=== PATIENT | male | born 1990 | race Caucasian/White ===

== ENCOUNTER → 2023-10-02 10:00 | Outpatient (BNV) | payer OTHER, SELFPAY | PROVIDERS: Visit Provider Psychiatry & Neurology Psychiatry | DX: F33.1 Major depressive disorder, recurrent, moderate (principal); F90.2 Attention-deficit hyperactivity disorder, combined type; F63.89 Other impulse disorders; F12.980 Cannabis use, unspecified with anxiety disorder | CPT/HCPCS: 90792; 99213; 99499 ==

== ENCOUNTER 2023-10-05 08:42 | Outpatient (REF) | payer OTHER, SELFPAY ==
--- NOTE | 2023-10-05 12:30 | ECG_ITS ---
Test Reason : F39 Blood Pressure : / mmHG Vent. Rate : 054 BPM Atrial Rate : 054 BPM P-R Int : 142 ms QRS Dur : 088 ms QT Int : 440 ms P-R-T Axes : -05 004 013 degrees QTc Int : 417 ms Sinus bradycardia with sinus arrhythmia Otherwise normal ECG No previous ECGs available Referred By: Alice Araujo Electronically Signed By:JA POSADA
[2023-10-05 13:07] LABS: MANUAL DIFF FLAG NO
[2023-10-05 13:12] LABS: Basophils Percent Auto 0.3 % (0-2); Eosinophils Absolute Auto 0.2 X10*3/uL (0.0-0.4); Eosinophils Percent Auto 3.9 % (0-4); Hematocrit 43.7 % (42.0-52.0); Hemoglobin 14.7 g/dl (14.0-18.0); Imm Gran Abs Auto 0.02 X10*3/uL (0.00-0.03); Imm Gran Pct Auto 0.3 % (0.0-0.4); Lymphocytes Absolute Auto 1.9 X10*3/uL (1.2-4.9); Lymphocytes Percent Auto 32.4 % (20-40); Mean Corpuscular HGB Conc 33.6 g/dl (31.0-36.0); Mean Corpuscular Hemoglobin 29.9 pg (27.0-33.0); Mean Corpuscular Volume 88.8 fL (80.0-98.0); Mean Platelet Volume 9.1 fL (9.4-12.4); Monocytes Absolute Auto 0.4 X10*3/uL (0.1-1.2); Monocytes Percent Auto 6.5 % (2-11); Neutrophils Absolute Auto 3.3 x10*3/uL (2.0-8.3); Neutrophils Percent Auto 56.6 % (45-73); Platelet Count 289 X10*3/uL (160-400); Red Blood Count 4.92 X10*6/uL (4.60-5.80); White Blood Count 5.9 X10*3/uL (4.8-10.8)
[2023-10-05 13:24] LABS: Estimated Average Glucose 100 mg/dL; Hemoglobin A1c % 5.1 % (<6.0)
[2023-10-05 13:54] LABS: Erythrocyte Sedimentation Rate 4 MM/HR (0-15)
[2023-10-05 14:26] LABS: Cholesterol 154 mg/dL (<200); HDL Cholesterol 40 mg/dL (>40); LDL Cholesterol Calculated 92 mg/dL (<100); Triglycerides 110 mg/dL (<150)
[2023-10-05 14:32] LABS: Alanine Aminotransferase 23 U/L (0-40); Albumin Level 4.7 g/dL (3.5-5.0); Alkaline Phosphatase 77 U/L (39-117); Anion Gap 13 (12-20); Aspartate Amino Transferase 16 U/L (5-37); Bilirubin Total 0.4 mg/dL (0.0-1.0); Blood Urea Nitrogen 10 mg/dL (9-16); C Reactive Protein < 0.10 mg/dL (< or = 0.50); Calcium 9.5 mg/dL (8.4-10.2); Carbon Dioxide 27 mmol/L (22-29); Chloride 104 mmol/L (96-108); Estimated Glomerular Filt Rate > 60; Glucose Fasting 91 mg/dL (60-99); Iron 76 mcg/dL (45-160); Percent Iron Saturation 27 % (15-50); Phosphorus 2.7 mg/dL (2.7-4.5); Sodium 140 mmol/L (135-145); Total Iron Binding Capacity 282 mcg/dL (228-428); Total Protein 7.6 g/dL (6.5-8.0); Unsaturated Iron Binding 206 ug/dL
[2023-10-05 14:50] LABS: Ferritin 174 ng/mL (20-250); Free T4 (Free Thyroxine) 0.91 ng/dL (0.71-1.85); Thyroid Stimulating Hormone 1.68 uIU/mL (0.32-4.0); Vitamin D 25-OH Total 32.3 ng/mL (>30)
[2023-10-05 15:03] LABS: Folate 5.5 ng/mL (> or = 4.0); Vitamin B12 223 pg/mL (200-900)
[2023-10-06 08:48] LABS: Syphilis Screen Nonreactive (Nonreactive)
[2023-10-06 08:51] LABS: HBS Num1 2.64 mIU/mL (0-7.99); HBc Num1 0.08 S/CO (0.00-0.79); HBsAGNum1 0.25 S/CO (0.00-0.99); HIV AB/AG Nonreactive (Nonreactive); HIV Num 1 0.05 S/CO (0.00-0.99); Hepatitis B Core Antibody Nonreactive (Nonreactive); Hepatitis B Surface Antigen Negative (Negative); ~Hepatitis B Surface Antibody NONREACTIVE (Nonreactive)
[2023-10-06 08:52] LABS: ~HepC Num1 0.07 S/CO (0.00-0.79); ~Hepatitis C Antibody Nonreactive (Nonreactive)
[2023-10-06 17:34] LABS: Homocysteine 10.3 umol/L (<11.4)
[2023-10-07 15:02] LABS: Lyme Abs Screen <0.90 index
[2023-10-07 22:23] LABS: Methylmalonic Acid 122 nmol/L (55-335)
[2023-10-09 06:39] LABS: Vitamin B6 9.8 ng/mL (2.1-21.7)
[2023-10-12 06:24] LABS: Vitamin B1 10 nmol/L (8-30)
== END 2023-10-05 08:43 | disposition home or self-care (01) ==
LOC: HO.10HDL 08:42
PROVIDERS: PCP Nurse Practitioner Family; Visit Provider Psychiatry & Neurology Psychiatry
DX: F39 Unspecified mood [affective] disorder (principal); F41.1 Generalized anxiety disorder; F99 Mental disorder, not otherwise specified
CPT/HCPCS: 36415; 80053; 80061; 82306; 82607; 82728; 82746; 83036; 83090; 83540; 83921; 84100; 84207; 84425; 84439; 84443; 85025; 85652; 86140; 86617; 86618; 86704; 86706; 86780; 86803; 87340; 87389; 93005

== ENCOUNTER 2023-10-15 10:00 | Outpatient (RCR) | payer OTHER, SELFPAY ==
[2023-10-02 09:30] VITALS: BP 124/73; PULSE 66; TEMP 36.6; BMI 30.4
--- NOTE | 2023-10-02 10:07 | PC.ADMIT ---
Patient is a 33 year old male who was referred by [facility] where he was admitted for 5 days the end of August secondary to increased sxs of depression , anxiety with panic attacks at work, and ADHD affecting his ability to work. He is taking FMLA from work to work on mental health. Stated return to work date is 10/16/23. 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 Reports struggling with work related stresses and break up of a 13 year relationship. He stated he moved out of home with his partner in July and moved back home with his parents who are supportive. Stated he currently is in the process of moving to [place] with his new partner. Patient is alert and oriented x4. Calm and cooperative. Thoughts are clear and logical. Presented with depressed mood and anxious affect. Denied SI, no HI. He was given a copy of his safety plan if needed. Medications reconciled with patient and patient's pharmacy. He stated he is taking medications as prescribed.
--- NOTE | 2023-10-02 23:54 | HO.PS.ADMBH ---
HPI Date of Service: 10/02/23 Chief Complaint: anxiety,depression Sources of Information: patient interviewed, chart reviewed and crisis/core team assessment reviewed HPI Narrative: Patient is a 33 year old male who was referred to [facility] through [facility] Respite. This is his first engagement with psychiatric treatment outside of therapy in the past. He has been experiencing an uptick in existential rumination, somatic anxiety, mood instability in the context of life changes and relationship stressors. He is dealing with complicated relationship dynamics, currently in the decoupling process with his shelter partner and simultaneously involved with a burgeoning love interest. He is currently transitioning between the home he shares with his long-term partner () and his new partner with whom he is in the early stages of their relationship. He reports experiencing cognitive and somatic anxiety, mood instability, chornic dysthymia, anhedonia, but says there have been some improvements and slight easing of symptoms since starting on Zoloft, I have noticed less impending sense of doom, if I spiral a bit, it doesn't last as long, more neutral to content mood . Reports cognitive anxiety severity at a 4 out 10, somatic anxiety at a 2 out of 10, depression severity is at a 7 out of 10. Sleep, appetite are variable. Mood is okay but there's this sense of sadness, loneliness and this endless deep well of sadness . He denies any SI, HI, AH, VH. Past Psychiatric History: No IPLOC, PHP, or detox/rehab admissions No SA or SIBs CURRENT MEDICATIONS: sertraline 50 mg qd [facility] Medical History (Updated 10/05/23 @ 08:35 by Alice Araujo MD) No known health problems Narrative: Occasional migraine headaches Hx of oral surgery Denies seizures Denies concussions or TBI Ht: 6'2 Wt: 235 lbs ALL: NKDA Social History: Complicated life history Has been with primary partner for the past 14 yrs, they met when patient was 19 yo, and partner was 46 yo lesbian. They have been since 2020 although throughout their entire partnership they have maintained non-monogamous relations with other romantic interests. He is currently in the process of decoupling from his /partner and has been increasingly attaching to a new partner Currently living between partners' residences, he periodically will returns home to live with his parents Currently employed at 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 This resulted in expulsion from in the 11th grade (2005) - was scheduled to graduate in 2006, but eventually worked toward completing his GED in 2009. He reports becoming involved in community-oriented [employer] event organization called [employer] which was consensus-run, low hierarchy organization which he says really changed my life and fostered a sense of belonging. He initially met his shelter partner at an event in 2008, and was eventually employed in administration, eventually joined leadership team, and spent years involved with [employer] work and other related jobs stemming from [employer]. He followed his parents when they moved to the [facility] in 2018 Substance History: Cannabis use - occasional use, up to a couple times a week Caffeine 0-3 units daily Misuse of stimulant medication on a couple of occasions at age 15, Adderall Diagnostics Vital Signs (24Hr): Vital Signs - 24 hr 10/02/23 09:30 Temperature 97.8 F Pulse Rate 66 Blood Pressure 124/73 BMI result Body Mass Index 30.4 Meds/Allergies Meds Home Medications ?Medication ?Instructions ?Recorded ?Confirmed ?Type hydroxyzine pamoate 25 mg capsule 25 - 50 mg PO TID PRN Anxiety 10/02/23 10/02/23 History Allergies Allergies Allergy/AdvReac Type Severity Reaction Status Date / Time No Known Allergies Allergy Verified 10/02/23 09:29 Mental Status Exam Mental Status Exam Narrative: Alert, oriented, in no acute distress. Calm, cooperative, engaged, well-related. No psychomotor agitation or neurovegetative retardation. Eye contact maintained. Mood depressed, affect variable, full range, reactive, with no lability or irritability. Speech normal, fluent. Thought process linear, coherent, ruminative. Thought content related to stressors, existential angst, but denies SI or HI. No paranoia or delusional content elicited. No evidence of psychosis. Insight and judgment good. Assessment & Plan Assessment & Plan (1) MDD (major depressive disorder), recurrent episode, moderate: Status: Acute Code(s): F33.1 - Major depressive disorder, recurrent, moderate (2) Attention-deficit hyperactivity disorder, combined type: Status: Acute Code(s): F90.2 - Attention-deficit hyperactivity disorder, combined type (3) Other impulse disorders: Status: Acute Code(s): F63.89 - Other impulse disorders (4) Cannabis use with anxiety disorder: Status: Acute Code(s): F12.980 - Cannabis use, unspecified with anxiety disorder Plan Admit to PHP VS reviewed: omkar, BP 124/73;?66 bpm start guanfacine ER 1 mg qd start lisdexamfetamine 10 mg qam (if not approved by insurance, will consider alternative stim vs modafinil) continue sertraline 50 mg qd (AE:mild ED) may consider switching to mood stabilizer if warranted with concomitant stimulant use for now continue hydroxyzine 25-50 mg TID prn anxiety (consider managing with guanfacine +/- other options less anticholinergic)? PA submitted Routine lab work ordered EKG, routine for baseline QTc for medication considerations UDS as indicated MassPat reviewed Continue to monitor as per protocol Patient educated on: diagnosis, medication risk/benefits and substance abuse Informed Consent: understands Reason for continued partial hosp. stay Substantial Risk for: inability to function and med/psych decompensation Certification I certify that partial hospital treatment is medically necessary due to the symptoms and problems resulting from the patient's mental illness and the failure to treat the patient at the partial hospital level of care would likely result in the patient requiring inpatient psychiatric care which could not be prevented at a less intensive level of care. Time Spent With Patient Time: Total time managing care of this patient today ___60_ minutes.
--- NOTE | 2023-10-08 14:07 | HO.PHP ---
Client's case has been opened and reviewed in team.
--- NOTE | 2023-10-08 22:32 | P.PNPSP_ITS ---
Subjective Subjective Date of Service: 10/08/23 Reason For Visit: anxiety,depression Interim History: Patient seen for follow up. Updates on interim events involving life stressors and relationship dynamics. He started on guanfacine in the evening. Has not been that drowsy, sleep intact. Anxiety during the day occurs situationally with phsycial anxiety, but tendency to overthink and get lost in ruminating, losing track and getting overwhelmed is pervasive. He is interested in trying the guanfacine during the day as suggested which would make sense once the patient start on lisdexamfetamine. 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 He plans to start tomorrow. Medication Compliance: Yes Side effects from medications: No Attending Groups: Yes Review of Systems Acute medical concerns: No Mental Status Exam Mental Status Exam Narrative: Alert, oriented, in no acute distress. Calm, cooperative, engaged. No psychomotor agitation or neurovegetative retardation. Eye contact maintained. Mood anxious, affect variable, mood congruent. Speech normal. Thought process linear, coherent. Thought content related to relationships stressors, existential ruminations, denies any hopelessness or SI. Denies any aggressive ideation or HI. No paranoia or delusional content elicited. No evidence of psychosis. Insight and judgment - fair but adequate. Diagnostics Vital Signs (24Hr): BMI result Body Mass Index 30.4 Assessment & Plan Assessment & Plan (1) MDD (major depressive disorder), recurrent episode, moderate: Status: Acute Code(s): F33.1 - Major depressive disorder, recurrent, moderate (2) Attention-deficit hyperactivity disorder, combined type: Status: Acute Code(s): F90.2 - Attention-deficit hyperactivity disorder, combined type (3) Other impulse disorders: Status: Acute Code(s): F63.89 - Other impulse disorders (4) Cannabis use with anxiety disorder: Status: Acute Code(s): F12.980 - Cannabis use, unspecified with anxiety disorder Plan continue guanfacine ER 1 mg qd (taking in afternoon) start lisdexamfetamine 10 mg qam (if not approved by insurance, will consider alternative stim vs modafinil) continue sertraline 50 mg qd (AE:mild ED) may consider switching to mood stabilizer if warranted with concomitant stimulant use continue hydroxyzine 25-50 mg TID prn anxiety (consider managing with guanfacine +/- other options less anticholinergic)? PA submitted Routine lab work ordered EKG, routine for baseline QTc for medication considerations UDS as indicated MassPat reviewed Continue to monitor as per protocol Patient educated on: diagnosis and medication risk/benefits Informed Consent: understands Reason for contiued partial hosp. stay Substantial Risk for: med/psych decompensation Certification I certify that partial hospital treatment is medically necessary due to the symptoms and problems resulting from the patient's mental illness and the failure to treat the patient at the partial hospital level of care would likely result in the patient requiring inpatient psychiatric care which could not be prevented at a less intensive level of care. Total time managing care of this patient today _30___ minutes. Discharge Plan Discharge Attending provider: Alice Araujo Additional Instructions: 10/16/2023? ?11:00 AM - 12:00 PM CHD Adult Comprehensive Assessment Prog: Outpatient Site: [address] [place] [address]? Staff: JACK ALCALA 11/17/2023? ?9:00 AM - 10:00 AM Psychiatric E/M New - Face to Face v2 Prog: Psychiatric Services Site: [address] [place] [address]? Staff: LYNDA CORLEY Medications: New sertraline 25 mg tablet 37.5 mg PO DAILY Qty: 45 0RF Continued sertraline 50 mg Tablet 50 mg PO DAILY Qty: 30 0RF lisdexamfetamine 10 mg capsule 10 mg PO QAM Qty: 30 0RF Rx Instructions: Partial Fill upon patient request. lisdexamfetamine 20 mg capsule 20 mg PO QAM Qty: 30 0RF Rx Instructions: Partial Fill upon patient request. Changed guanfacine 1 mg tablet extended release 24 hr 1 mg PO DAILY Qty: 30 0RF Discontinued hydroxyzine pamoate 25 mg Capsule 25 - 50 mg PO TID PRN (Reason: Anxiety) Patient Comments: Patient reports makes him feel drowsy thus does not take. Stand Alone Forms: Patient Portal Discharge page Patient Education: ADHD in Adults (ED), ADHD in Adults (DC), ADHD in Adults (GEN), Depression (DC) Print Language: Haitian
--- NOTE | 2023-10-09 12:22 | HO.PHP ---
PHP staff member faxed a referral to [facility] for med managment. PHP staff member is awaiting on the scheduled appointment dates and times.
--- NOTE | 2023-10-12 14:00 | HO.PHP ---
[facility] staff member received an email in regards to Lorenzo's med appointments. Lorenzo is scheduled for: 10/16/2023? ?11:00 AM - 12:00 PM CHD Adult Comprehensive Assessment Prog: Outpatient Site: [address] [place] [address]? Staff: JACK ALCALA 11/17/2023? ?9:00 AM - 10:00 AM Psychiatric E/M New - Face to Face v2 Prog: Psychiatric Services Site: [address] [place] [address]? Staff: LYNDA CORLEY
--- NOTE | 2023-10-15 22:32 | HO.PHPPROGNO ---
Subjective Subjective Date of Service: 10/15/23 Reason For Visit: anxiety,depression Interim History: Wow it was great the first day, I could almost immediately notice a difference within an hour . Didnt need coffee to feel more mentally alert and felt more present. The effect abated by the 2nd or 4rd day and kind of feels he is back to normal, but as we discussed he knows this is likely due to needing the dose titrated. He continues to cut back on coffee and also notes that the guanfacine during the day has been helping with anxiety it's a lot lower . Will plan to increase dose of Vyvanse to 20 mg and cotninue guanfacine qam and evening as needed. He reports feeling more level, mood is fine . He is not sure whether ZOloft has helped him or whether he needs to remain on it. Causes some sexual dysfunction. For now will continue at 50 mg daily until he sorts out Vyvanse dose in the next week or 2, then he can plan to lower dose to 37.5 mg and remain there for a month to see if there are any changes. Will plan to follow up with OP provider to monitor changes. Medication Compliance: Yes Side effects from medications: No Attending Groups: Yes Review of Systems Acute medical concerns: No Mental Status Exam Mental Status Exam Narrative: Alert, oriented, in no acute distress. Calm, cooperative, engaged, well-related. No psychomotor agitation or neurovegetative retardation. Eye contact maintained. Mood good , affect variable, full range, reactive, with no lability or irritability. Speech normal, fluent. Thought process linear, coherent. Thought content related to stressors, denies SI or HI. No paranoia or delusional content elicited. No evidence of psychosis. Insight and judgment good. Diagnostics Vital Signs (24Hr): BMI result Body Mass Index 30.4 Assessment & Plan Assessment & Plan (1) MDD (major depressive disorder), recurrent episode, moderate: Status: Acute Code(s): F33.1 - Major depressive disorder, recurrent, moderate (2) Attention-deficit hyperactivity disorder, combined type: Status: Acute Code(s): F90.2 - Attention-deficit hyperactivity disorder, combined type (3) Other impulse disorders: Status: Acute Code(s): F63.89 - Other impulse disorders (4) Cannabis use with anxiety disorder: Status: Acute Code(s): F12.980 - Cannabis use, unspecified with anxiety disorder Plan Discharge from [facility] continue guanfacine ER 1 mg qd-bid increase lisdexamfetamine to 20 mg qam continue sertraline 50 mg qd for now, once Ted sorted, patient may reduce sertraline to 37.5 mg qd for side effects Refills sent to pharmacy Will defer further medication management to outpatient provider *Safety plan reviewed *Discharge diagnoses, treatment course, discharge plan have been reviewed with patient (including medication regime, medication management, potential side effects) as well as treatment rationale were also revisited *Discharge paperwork signed and given to patient, copy sent for scanning to chart for now discontinue hydroxyzine 25-50 mg TID prn anxiety Patient educated on: diagnosis and medication risk/benefits Informed Consent: understands Reason for contiued partial hosp. stay Substantial Risk for: stable for discharge Certification I certify that partial hospital treatment is medically necessary due to the symptoms and problems resulting from the patient's mental illness and the failure to treat the patient at the partial hospital level of care would likely result in the patient requiring inpatient psychiatric care which could not be prevented at a less intensive level of care. Total time managing care of this patient today __30__ minutes. Discharge Plan Discharge Attending provider: Alice Araujo Additional Instructions: 10/16/2023? ?11:00 AM - 12:00 PM CHD Adult Comprehensive Assessment Prog: Outpatient Site: [address] [place] [address]? Staff: JACK ALCALA 11/17/2023? ?9:00 AM - 10:00 AM Psychiatric E/M New - Face to Face v2 Prog: Psychiatric Services Site: [address] [place] [address]? Staff: LYNDA CORLEY Medications: New sertraline 25 mg tablet 37.5 mg PO DAILY Qty: 45 0RF Continued sertraline 50 mg Tablet 50 mg PO DAILY Qty: 30 0RF lisdexamfetamine 10 mg capsule 10 mg PO QAM Qty: 30 0RF Rx Instructions: Partial Fill upon patient request. lisdexamfetamine 20 mg capsule 20 mg PO QAM Qty: 30 0RF Rx Instructions: Partial Fill upon patient request. Changed guanfacine 1 mg tablet extended release 24 hr 1 mg PO DAILY Qty: 30 0RF Discontinued hydroxyzine pamoate 25 mg Capsule 25 - 50 mg PO TID PRN (Reason: Anxiety) Patient Comments: Patient reports makes him feel drowsy thus does not take. Stand Alone Forms: Patient Portal Discharge page Patient Education: ADHD in Adults (ED), ADHD in Adults (DC), ADHD in Adults (GEN), Depression (DC) Print Language: Tamazight
--- NOTE | 2023-10-23 17:25 | PM.EVENT ---
Event Note Date of Service: 12/09/23 Event Note: Spoke with patient to review remaining nutritional lab work. Discussed supplementation strategies that may be helpful including thiamine, levomefolate, cobalamin. Some evidence for NAC as helpful in treatment of ADHD. Patient tolerating 20 mg Vyvanse, no issues, is starting to notice a difference in attention and feeling more present but is fleeting and feels there is still a lot of room for improvement. Will allow to increase dose to 30 mg for at least 3-4 days and then could trial 40 mg qam as tolerated. Will lower dose for any signs fo activation, anxiety, insomnia. Time Spent With Patient Time: Total time managing care of this patient today _20___ minutes.
--- NOTE | 2023-11-09 21:55 | PM.EVENT ---
Event Note Date of Service: 11/09/23 Event Note: Returned call to patient regarding medication updates and refill requests. He is doing well with medications overall. No major issues. He reports improvements in functioning and cognition. Improved working memory, less forgetfulness, feeling more present, self-aware and more efficiency. Better able to stay on task, less distractible by extraneous thoughts, which has lead to feeling more calm and less scattered. He is anticipating starting work next week. He is still not sure he has reached a dose where Vyvanse is fully optimized. He denies any side effects - denies any physical symptoms, palpitations, headaches or other physical symptoms. Anxiety has been overall more manageable, some from modest imrpvement from gunafacine, but also Vyvanse. He has been at 40 mg qd and has been sticking to taking breaks from the stimulant for ~2 days a week. 40 mg is notably more 20 mg, he feels there is still room for improvement so we will trial 60 mg for this week. He reports sleep is good. He continues with gradual taper from sertraline from 37.5 mg to 25 mg now. Denies any change in mood or anxiety level. Mood is good:. No hopelessness or SI. He is hoping to eventually be able to tolerate discontinuation given sexual side effects even at 25 mg qd. Patient anticipating new psych provider appointment on November 16. We will plan to check in later in week to see if 60 mg is more effective and well-tolerated vs 50 mg (or 40). He is allowed to increase guanfacine ER to 1-2 mg qam. Time Spent With Patient Time: Total time managing care of this patient today __30__ minutes.
--- NOTE | 2023-11-13 21:27 | P.EN_ITS ---
Event Note Date of Service: 11/13/23 Event Note: Patient called to check in as planned. He anticipates appointment with new provider next week. He would like to review current medicaitons and doses and make sure everything is all set and medications/doses clear so transition of care goes smoothly. He has found that Vyvanse 60 mg is a little more than I need feeling very focused, but then leaving him a little tired at the end of the day. Focus better than 40 mg, but some emerging side effects is taken consec utively. He has been adhering to taking 2 days a week off from [facility] Vyvanse to imrpove overall tolerance/sustainability. He feels 50 mg would be the correct dose for him just right . Reports his mood remains stable even at the reduced dose of sertraline to 50 mg for the past number of weeks. He advocates to for further dose to help mitigate sexual side effects. Sleep, appetite and energy are stable. Denies any issues with SI, HI, AVH. Time Spent With Patient Time: Total time managing care of this patient today __30__ minutes.
== END 2023-10-15 23:59 | disposition home or self-care (01) ==
LOC: HO.PHPA 10:00
PROVIDERS: Visit Provider Psychiatry & Neurology Psychiatry
DX: F33.1 Major depressive disorder, recurrent, moderate (principal); F90.2 Attention-deficit hyperactivity disorder, combined type; F63.89 Other impulse disorders; F12.980 Cannabis use, unspecified with anxiety disorder
CPT/HCPCS: 90791; 90853